=== PATIENT | female | born 1965 | race Caucasian/White ===

== ENCOUNTER 2017-06-21 12:24 | Inpatient (IN) | payer BC ==
[~2017-06-21] VITALS: Ht 167.6 cm; Wt 83.8 kg
[2017-06-21] MEDS ORDERED: BIRTH CONTROL (12:36)
[2017-06-21] MEDS ORDERED: SODIUM CHLORIDE FLUSH 10ML SYR IVF ONE (13:00)
[2017-06-21 13:19] LABS: HEMATOCRIT 41.9 % (34.6-47.8); HEMOGLOBIN 14.6 g/dL (11.7-16.4); WHITE BLOOD COUNT 11.6 x10^3/uL (3.4-10)
[2017-06-21] MEDS ORDERED: GADOBUTROL 10 MMOL/10 ML VIAL ONE (13:23)
[2017-06-21 13:30] LABS: BLOOD UREA NITROGEN 9 mg/dL (7-18)
[2017-06-21] MEDS ORDERED: MORPHINE SULFATE 4 MG/ML, 1ML ONE (14:09)
[2017-06-21] MEDS ORDERED: ONDANSETRON 2MG/ML, 2ML ONE (14:09)
[2017-06-21] MEDS ORDERED: MORPHINE SULFATE 4 MG/ML, 1ML IVPush PRN (14:30)
[2017-06-21] MEDS ORDERED: ONDANSETRON 2MG/ML, 2ML IVPush ONE (14:30)
[2017-06-21] MEDS ORDERED: ENOXAPARIN 80 MG/0.8 ML ONE (16:39)
[2017-06-21] MEDS: ENOXAPARIN 80 MG/0.8 ML SQ SCH (16:40)
[2017-06-21] MEDS ORDERED: HYDROcodone/APAP 5/325 TABLET PO PRN (17:00)
[2017-06-21] MEDS ORDERED: Enoxaparin 1 mg/kg protocol SQ SCH (17:00)
[2017-06-21] MEDS ORDERED: LORazepam 2 MG/ML, 1ML IVPush PRN (17:00)
[2017-06-21] MEDS ORDERED: ZOLPIDEM 5MG TABLET PO PRN (17:00)
[2017-06-21] MEDS ORDERED: ACETAMINOPHEN 325 MG TABLET PO PRN (17:00)
[2017-06-21] MEDS ORDERED: DOCUSATE 100 MG CAPSULE PO PRN (17:00)
[2017-06-21] MEDS: ONDANSETRON 2MG/ML, 2ML IVPush PRN ×2 (18:40→22:40)
[2017-06-21] MEDS: MORPHINE SULFATE 4 MG/ML, 1ML IVPush PRN ×2 (18:40→22:40)
[2017-06-21 19:29] VITALS: BP 110/74
[2017-06-21 20:02] VITALS: BP 110/74
[2017-06-21 20:57] VITALS: BP 110/74
[2017-06-22 00:15] VITALS: BP 109/71
[2017-06-22] MEDS: ONDANSETRON 2MG/ML, 2ML IVPush PRN (03:31)
[2017-06-22] MEDS: MORPHINE SULFATE 4 MG/ML, 1ML IVPush PRN (03:31)
[2017-06-22] MEDS: ENOXAPARIN 80 MG/0.8 ML SQ SCH ×2 (04:07→15:37)
[2017-06-22 05:41] LABS: BLOOD UREA NITROGEN 10 mg/dL (7-18)
[2017-06-22 05:46] LABS: HEMATOCRIT 38.1 % (34.6-47.8); HEMOGLOBIN 13.1 g/dL (11.7-16.4); WHITE BLOOD COUNT 8.9 x10^3/uL (3.4-10)
[2017-06-22 08:00] VITALS: BP 119/80
[2017-06-22] MEDS ORDERED: KETOROLAC 30 MG/1 ML IVPush ONE (11:00)
[2017-06-22] MEDS ORDERED: OXYcodone IR 5MG TABLET PO PRN ×2 (11:00→16:30)
[2017-06-22] MEDS ORDERED: MORPHINE SULFATE 4 MG/ML, 1ML IVPush PRN ×2 (11:00→16:30)
[2017-06-22] MEDS ORDERED: HYDROmorphone 1 MG/ML, 1ML ONE (11:11)
[2017-06-22] MEDS: ACETAMINOPHEN 325 MG TABLET PO SCH ×3 (11:12→22:08)
[2017-06-22] MEDS ORDERED: HYDROmorphone 2 MG/ML, 1ML IV PRN ×2 (11:30→16:30)
[2017-06-22] MEDS: WARFARIN MODERAT DOSE PROTOCOL XX SCH (12:00)
[2017-06-22] MEDS: FAMOTIDINE 20 MG TABLET PO SCH ×2 (12:02→22:07)
[2017-06-22 14:53] VITALS: BP 114/74
[2017-06-22] MEDS ORDERED: ZOLPIDEM 5MG TABLET PO PRN (16:30)
[2017-06-22] MEDS ORDERED: LORazepam 2 MG/ML, 1ML IVPush PRN (16:30)
[2017-06-22] MEDS ORDERED: ONDANSETRON 2MG/ML, 2ML IVPush PRN (16:30)
[2017-06-22] MEDS ORDERED: WARFARIN 7.5 MG TABLET PO-COUM ONE (18:00)
[2017-06-22 18:40] VITALS: BP 134/81
[2017-06-23 02:26] VITALS: BP 110/74
[2017-06-23] MEDS: ACETAMINOPHEN 325 MG TABLET PO SCH ×4 (04:05→22:57)
[2017-06-23] MEDS: ENOXAPARIN 80 MG/0.8 ML SQ SCH ×2 (04:05→15:40)
[2017-06-23 07:18] VITALS: BP 105/69
[2017-06-23] MEDS: FAMOTIDINE 20 MG TABLET PO SCH ×2 (07:52→21:47)
[2017-06-23] MEDS: WARFARIN MODERAT DOSE PROTOCOL XX SCH (12:00)
[2017-06-23 12:31] VITALS: BP 136/82
[2017-06-23] MEDS ORDERED: WARFARIN 7.5 MG TABLET PO-COUM ONE (18:00)
[2017-06-23 19:18] VITALS: BP 146/87
[2017-06-24 01:26] VITALS: BP 127/79
[2017-06-24] MEDS: ENOXAPARIN 80 MG/0.8 ML SQ SCH ×2 (04:06→18:16)
[2017-06-24] MEDS: ACETAMINOPHEN 325 MG TABLET PO SCH ×2 (04:06→11:06)
[2017-06-24 07:18] VITALS: BP 128/79
[2017-06-24 08:07] LABS: DILUTE PROTHROMBIN TIME (DPT) 38.2 sec (0.0-55.0); DILUTE RUSSELL'S VIPER VENOM 35.4 sec (0.0-47.0); LUPUS REFLEX INTERPRETATION Comment: (.); PTT-LA 31.3 sec (0.0-51.9)
[2017-06-24] MEDS: FAMOTIDINE 20 MG TABLET PO SCH ×2 (09:05→21:17)
[2017-06-24] MEDS: WARFARIN MODERAT DOSE PROTOCOL XX SCH (12:00)
[2017-06-24] MEDS ORDERED: SUMATRIPTAN 100 MG TABLET PO ONE (13:00)
[2017-06-24 14:30] VITALS: BP 126/76
[2017-06-24] MEDS: KETOROLAC 30 MG/1 ML IVPush SCH ×2 (15:08→21:17)
[2017-06-24] MEDS ORDERED: ACETAMINOPHEN 325 MG TABLET PO PRN (17:00)
[2017-06-24] MEDS ORDERED: WARFARIN 7.5 MG TABLET PO-COUM ONE (18:00)
[2017-06-24] MEDS: DOCUSATE 100 MG CAPSULE PO PRN (18:16)
[2017-06-24 19:47] VITALS: BP 133/84
[2017-06-25] MEDS: KETOROLAC 30 MG/1 ML IVPush SCH (03:26)
[2017-06-25 03:27] VITALS: BP 117/72
[2017-06-25] MEDS: ENOXAPARIN 80 MG/0.8 ML SQ SCH ×2 (05:14→18:26)
[2017-06-25 09:04] VITALS: BP 131/85
[2017-06-25] MEDS: FAMOTIDINE 20 MG TABLET PO SCH ×2 (09:33→21:00)
[2017-06-25] MEDS: DOCUSATE 100 MG CAPSULE PO PRN ×2 (09:34→18:32)
[2017-06-25] MEDS: WARFARIN MODERAT DOSE PROTOCOL XX SCH (11:40)
[2017-06-25 14:23] VITALS: BP 128/74
[2017-06-25] MEDS ORDERED: WARFARIN 7.5 MG TABLET PO-COUM SCH (18:00)
[2017-06-25 20:04] VITALS: BP 128/81
[2017-06-26] MEDS: ENOXAPARIN 80 MG/0.8 ML SQ SCH (06:49)
[2017-06-26 08:04] VITALS: BP 125/79
[2017-06-26] MEDS: FAMOTIDINE 20 MG TABLET PO SCH (08:51)
[2017-06-26] MEDS ORDERED: WARF3TAB7 PO (11:00)
[2017-06-26] MEDS ORDERED: SUMA100T4 PO (11:02)
[2017-06-26] MEDS ORDERED: ACET325T14 PO (11:02)
[2017-06-26] MEDS: WARFARIN MODERAT DOSE PROTOCOL XX SCH (12:00)
[2017-06-26] MEDS ORDERED: WARFARIN 5 MG TABLET PO-COUM SCH (18:00)
[2017-06-27 13:07] LABS: FACTOR II DNA ANALYSIS Negative (.)
== END 2017-06-26 14:50 | disposition home or self-care (01) | DRG 92 ==
LOC: ED 15:00 → EDIP 15:46 → 4EST 18:08 → 4WST 06-24 15:25 → DCLOUNGE 06-26 14:32
PROVIDERS: ADMIT Internal Medicine; ATTEND Internal Medicine
DX: G08 Intracranial and intraspinal phlebitis and thrombophlebitis (principal); I82.C12 Acute embolism and thrombosis of left internal jugular vein; K21.9 Gastro-esophageal reflux disease without esophagitis; R51 Headache; M54.2 Cervicalgia; Z79.01 Long term (current) use of anticoagulants; Z88.8 Allergy status to other drugs, medicaments and biological substances; Z88.2 Allergy status to sulfonamides; Z90.89 Acquired absence of other organs
CPT/HCPCS: 36415; 70450; 70546; 70551; 80048; 81240; 81241; 82040; 85025; 85300; 85303; 85306; 85610; 85613; 85670; 85705; 85732; 86147; 96372; 96374; 96375; A9585; J1170; J1650; J1885; J2405

== ENCOUNTER → 2017-12-02 | Outpatient (CLI) | payer BC ==
[~2017-12-02] MED LIST: ACET325T14 PO; BIRTH CONTROL; GADOBUTROL 7.5 MMOL/7.5 ML VIAL ONE; SUMA100T4 PO; WARF3TAB7 PO
== END | disposition home or self-care (01) ==
LOC: CFH 12:27
PROVIDERS: ATTEND Psychiatry & Neurology Neurology
DX: I82.90 Acute embolism and thrombosis of unspecified vein (principal); J34.89 Other specified disorders of nose and nasal sinuses
CPT/HCPCS: 70546; 70553; A9585

== ENCOUNTER → 2018-07-11 | Outpatient (CLI) | payer BC ==
[~2018-07-11] MED LIST changes: +WARF3TAB52 PO; -WARF3TAB7 PO
== END | disposition home or self-care (01) ==
LOC: RAD 14:45
PROVIDERS: ATTEND Psychiatry & Neurology Neurology
DX: I82.90 Acute embolism and thrombosis of unspecified vein (principal); I74.9 Embolism and thrombosis of unspecified artery
CPT/HCPCS: 70546; 70553; A9585